=== PATIENT | male | born 1945 | race Caucasian/White ===

== ENCOUNTER 2021-03-27 09:15 | Day surgery (SDC) | payer OTHER ==
--- NOTE | 2021-03-23 17:32 | RAD REPORT ---
EXAM DESCRIPTION: RAD - Chest Pa And Lat (2 Views) - 03/23/2021 5:21 pm CLINICAL HISTORY: PRE-CATH PROCEDURE COMPARISON: No comparisons FINDINGS: Lines: None. Lungs: No evidence of edema or pneumonia. Pleural: No significant pleural effusions or pneumothorax. Cardiac: Cardiomegaly. Bones: No acute fractures. Sternotomy. Other: IMPRESSION: No acute cardiopulmonary disease.
[2021-03-23 17:39] LABS: Absolute Lymphocytes (CBC) 0.8 K/uL (0.7-4.9); Hematocrit 40.5 % (39.6-49.0); Lymphocytes % 16.8 % (15.3-44.8); MPV 7.9 fL (7.6-11.3); RBC Red Blood Cell Count 5.04 M/uL (4.33-5.43)
[2021-03-23 17:44] LABS: Protime INR 1.29
[2021-03-23 17:58] LABS: Potassium 3.8 mmol/L (3.5-5.1)
[2021-03-27] MEDS ORDERED: NA CHLORIDE 0.9% 500 ML ONE (09:25)
[2021-03-27] MEDS ORDERED: MIDAZOLAM HCL 2 MG/2 ML INJ ONE ×2 (09:53→10:45)
[2021-03-27] MEDS ORDERED: HEPA 1000U/500MLS 2,000 UNIT/1,000 ML BAG IV ONE (09:53)
[2021-03-27] MEDS ORDERED: FENTANYL CITR 100 MCG/2 ML ONE (09:54)
[2021-03-27] MEDS ORDERED: ATROPINE SULF 1 MG/10 ML SYR IV ONE (09:54)
[2021-03-27] MEDS ORDERED: NA CHLORIDE 0.9% 50 ML ONE (09:55)
[2021-03-27] MEDS ORDERED: HEPA 1000U/500MLS 1,000 UNIT/500 ML BAG IV ONE (11:14)
[2021-03-27] MEDS ORDERED: LIDOCAINE 1% 20 ML MDV ONE (12:09)
--- NOTE | 2021-03-27 12:39 | OP ---
Date of Procedure: 03/27/2021 Surgeon: Marc Jones MD Indication For The Procedure: Unstable angina. History of CAD. History Of Present Illness: Mr. Rojas is 75, had bypass surgery in 2001, came into the office with unstable angina, scheduled for heart catheterization today as an outpatient. Today's date is . Procedure In Detail: He was brought to the [facility] [employer] [facility], prepped and draped in the routine sterile fashi on. A 6-Spanish sheath introduced in the right common femoral artery successfully using Seldinger asim hnique and 10 cc of xylocaine. Angiography using the JL4 revealed the patent left main. He had a 99 % occlusion of the circumflex and 90% stenosis of the OM-1, 80% proximal LAD before the first diagona l. A JR4 catheter was introduced. The HART was then retracted. The HART was patent to the distal L AD. A vein graft to the OM was found. There was a graft to the circ. There were no vein grafts fou nd to the RCA. The RCA was completely occluded. I actually attempted stent. I attempted to wire th e OM and I did wire it, but the wire would not go into the main body, it kept on to small branches. I attempted to put a balloons through the lesion and that was unsuccessful. I decided to abort the p rocedure. I think he would be much better to be done in [facility]. No complications. Blood Loss: 5 cc. Postoperative Diagnosis: Coronary artery disease, severe. I will review the film with my partner, Dr. Garvey and see if we can have a possible intervention don e in [facility] on him at least of the OM and possibly the LAD. Meanwhile, because of the thrombus in t he OM graft, I am going to put him on Brilinta. He is already on Eliquis for atrial fibrillation or probably plan to do an intervention in the next 2 to 4 weeks. He will remain in the hospital for 2 h ours after bedrest. Continue his home medication except for the Brilinta and I will see him in the office soon. ARTIE/LEXI Voice ID: [id number] Report ID: [id number]
[2021-03-27 13:41] VITALS: TEMP 97.4
[2021-03-27 15:09] VITALS: O2SAT 99
[2021-03-27 15:39] VITALS: BP 136/84
== END 2021-03-27 15:39 | disposition home or self-care (01) ==
LOC: CCL 09:15
DX: I25.110 Atherosclerotic heart disease of native coronary artery with unstable angina pectoris (principal); I25.82 Chronic total occlusion of coronary artery; I11.0 Hypertensive heart disease with heart failure; I50.22 Chronic systolic (congestive) heart failure; I34.0 Nonrheumatic mitral (valve) insufficiency; I48.21 Permanent atrial fibrillation; E78.2 Mixed hyperlipidemia; Z79.01 Long term (current) use of anticoagulants; Z95.1 Presence of aortocoronary bypass graft; Z20.822 Contact with and (suspected) exposure to COVID-19; Z82.49 Family history of ischemic heart disease and other diseases of the circulatory system
CPT/HCPCS: 85025; 80048; 36415; 85610; 85347 ×3; 85730; 71046; 93455; U0003; C1893; J2250; J3010; J0583; J7040; J1644 ×2

== ENCOUNTER 2021-08-24 12:03 | Observation (INO) | payer OTHER ==
--- OUTSIDE RECORDS SUMMARY | 2021-08-24 12:07 | XMS REPORT | Continuity of Care Document ---
:1945 Author Organization [facility] t Address [address] [place] [address] Care Team Providers Name Role Phone PCP, DOES NOT HAVE A Primary Care Physician Unavailable Guru Attending Clinician Unavailable RILEY Attending Clinician Unavailable CRIS Attending Clinician Unavailable MAGDALENE Attending Clinician Unavailable Physician, Primary or Family Admitting Clinician Unavailcelso KATZ Admitting Clinician Unavailable Guru Admitting Clinician Unavailable CRIS Admitting Clinician Unavailable Payers Payer Name Policy Type Policy Number Effective Date Expiration Date S willy MEDICARE PART A [id number] 2011 AND B 00:00:00 MEDICARE PART A [id number] 2011 \T\ B 00:00:00 Problems This patient has no known problems. Allergies, Adverse Reactions, Alerts Allergy Allergy Status Severity Reaction(s) Onset Inactive Treating Comm ents Source Name Type Date Date Clinician No Known DA Active U [facility]-17 Clear s 00:00: Melendez 00 [facility] No Known DA Active U 0 [facility] Allergie 1-10 Clear s 00:00: Melendez 00 [facility] NO KNOWN Drug Active Univers ALLERGIE Class ity of S [facility] Medications This patient has no known medications. Procedures Procedure Date / Time Performed Performing Clinician Purvi mcclure [id number] 2021-05-23 00:00:00 RASSA AMIRA Clear [facility] Encounters Start End Encounter Admission Attending Care Care Encounter Source Date/Time Date/Time Type Type Clinicians Facility Department ID 2021-06-18 Inpatient EL Raslan, [facility] [id number] [facility] 09:30:00 Kevin [id number] [facility] 2021-05-16 Inpatient EL Raslan, [facility] [id number] [facility] 13:00:00 Kevin [id number] [facility] 2021-05-09 Inpatient EL Raslan, [facility] OUT[facility] [id number] [facility] 13:00:00 Kevin [id number] [facility] 2021-04-30 Inpatient EL Raslan, [facility] OUTD [id number] [facility] 11:30:00 Kevin [id number] [facility] 2021-04-25 Inpatient EL Raslan, [facility] [id number] [facility] 10:00:00 Kevin 61 [facility] 2021-04-23 Inpatient EL Raslan, [facility] OUTD [id number] [facility] 10:00:00 Kevin [id number] [facility] 2020-12-22 Outpatient FIDEL LIN MDA [id number] 09:52:44 MIYA garces 2021-06-20 2021-06-20 Outpatient EL Raslan, [facility] OUTD [id number] [facility] 05:23:00 05:23:00 Kevin [id number] [facility] 2021-06-20 2021-06-20 Outpatient EL Raslan, [facility] [id number] [facility] 05:23:00 05:23:00 Kevin 63 [facility] 2021-05-23 2021-05-23 Inpatient EL Raslan, [facility] INTE.02 [id number] [facility] 11:45:00 17:35:00 Kevin 00 [facility] 2021-05-23 2021-05-23 Inpatient EL Raslan, [facility] INTE.02 [id number] [facility] 11:45:00 17:35:00 Kevin [id number] [facility] 2021-05-07 2021-05-07 Outpatient EM Raslan, [facility] 3DAY [id number] [facility] 09:00:00 23:00:00 Kevin [id number] [facility] 2021-05-02 2021-05-02 Outpatient EL Raslan, [facility] [id number] [facility] 05:34:00 05:34:00 Kevin 88 [facility] 2021-05-02 2021-05-02 Outpatient ISAI Pickens OUTD [id number] [facility] 05:34:00 05:34:00 Kevin [id number] [facility] 2021-04-25 2021-04-25 Outpatient ISAI Pickens OUTD [id number] [facility] 05:03:00 05:03:00 Kevin [id number] [facility] 2019-07-13 2019-07-13 Outpatient R CRIS, [facility] [id number] Univers 12:30:46 23:59:00 HOWARD [facility] 2019-07-13 2019-07-13 Outpatient [facility] [id number] Univers 11:40:00 11:40:00 [id number] [facility] 2019-07-12 2019-07-12 Outpatient R [facility] [id number] Univers 20:00:00 20:00:00 [id number] [facility] 2019-07-12 2019-07-12 Outpatient R MAGDALENE, [facility] [id number] Univers 20:00:00 20:00:00 CHASTITY [facility] Results Test Description Test Time Test Comments Results Result Comments Source BASIC METABOLIC PANEL 2021-06-18 10:25:00 Test Item Value Reference Range Interpretation Comme nts SODIUM (test code = NA) 140 mEq/L 134-147 N POTASSIUM (test code = K) 3.8 mEq/L 3.4-5.0 N CHLORIDE (test code = CL) 103 mEq/L 100-108 N CARBON DIOXIDE (test code = CO2) 29 mEq/l 21-33 N ANION GAP (test code = GAP) 12 0-20 N GLUCOSE (test code = GLU) 152 mg/dL 70-110 H BLOOD UREA NITROGEN (test code = 10 mg/dL 7-18 N BUN) GLOMERULAR FILTRATION RATE (test 59.0 70-80 L Units of measure = ml/min/1.73 code = GFR) m2 CREATININE (test code = CREAT) 1.2 mg/dL 0.6-1.3 N CALCIUM (test code = CA) 9.3 mg/dL 8.0-10.5 N PROTHROMBIN [id number] 10:24:00 Test Item Value Reference Range Interpretation Comments PROTHROMBIN TIME 15.1 SECONDS 9.3-12.9 H PATIENT (test code = PTP) INTERNATIONAL NORMAL 1.4 0.8-1.2 H TARGET RATIO (test code = INR BY IN DICATION INR) Indication INR1. Prophyl axis of venous thrombos is 2.0 - 3. 0 (orthopedic vinod temo), Prophylaxis of venous thrombos is (other than hig h-risk surgery), Brenda tment of Deep Vein Thrombosis/Pulm onary Embolism, Preve ntion of systemic emb olism - Tissue heart va lves, Acute Myocardia l Infarction (to prevent systemic embo lism), Valvular heart disease, Atri al Fibrillation, Bileaflet mecha nical valve in aortic position.2. Mec hanical prosthetic valv es (high risk), 2.5 - 3.5 Presence of Lupus Anticoagu lant or Antiphospholi pid Antibodies, Pre vention of systemic e mbolism - Acute Myocard ial Infarction (t o prevent recurre nt infarct). CBC W/AUTO [id number] 10:23:00 Test Item Value Reference Range Interpretation Comments WHITE BLOOD CELL (test code = 4.8 x10 3/uL 4.5-11.0 N WBC) RED BLOOD CELL (test code = 5.21 x10 6/uL 4.00-5.60 N RBC) HEMOGLOBIN (test code = HGB) 13.1 g/dL 12.5-16.9 N HEMATOCRIT (test code = HCT) 42.0 % 37.5-50.7 N MEAN CELL VOLUME (test code = 80.6 fL 81.0-99.0 L MCV) MEAN CELL HGB (test code = MCH) 25.1 pg 27.0-33.0 L MEAN CELL HGB CONCETRATION 31.2 g/dL 33.0-37.0 L (test code = MCHC) RED CELL DISTRIBUTION WIDTH CV 16.2 % 11.5-14.5 H (test code = RDW) PLATELET COUNT (test code = 222 x10 3/uL 150-400 N PLT) NEUTROPHIL % (test code = NT%) 69.2 % 56.0-77.0 N LYMPHOCYTE % (test code = LY%) 15.0 % 14.0-32.0 N NEUTROPHIL # (test code = NT#) 3.31 x10 3/uL 2.0-7.6 N LYMPHOCYTE # (test code = LY#) 0.72 x10 3/uL 1.0-3.8 L MANUAL DIFF REQUIRED (test code NO = MDIFF) RED CELL DISTRIBUTION WIDTH SD 47.7 fL 37.0-54.0 N (test code = RDW-SD) MEAN PLATELET VOLUME (test code 9.5 fL 7.0-9.0 H = MPV) IMMATURE GRANULOCYTE % (test 0.2 % 0.0-2.0 N code = IG%) MONOCYTE % (test code = MO%) 9.2 % 4.8-9.0 H EOSINOPHIL % (test code = EO%) 5.8 % 0.3-3.7 H BASOPHIL % (test code = BA%) 0.6 % 0.0-2.0 N NUCLEATED RBC % (test code = 0.0 % 0-0 N NRBC%) IMMATURE GRANULOCYTE # (test 0.01 x10 3/uL 0.00-0.03 N code = IG#) MONOCYTE # (test code = MO#) 0.44 x10 3/uL 0.1-0.8 N EOSINOPHIL # (test code = EO#) 0.28 x10 3/uL 0.0-0.2 H BASOPHIL # (test code = BA#) 0.03 x10 3/uL 0.0-0.2 N NUCLEATED RBC # (test code = 0.00 x10 3/uL 0.0-0.1 N NRBC#) [id number] 10:59:00 Test Item Value Reference Range Interpretation Comments ACT-ISTAT (test code 249 SEC 74-137 H Perform ed by certified = ACTI) 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 Prophyl axis of venous thrombos is 2.0 - 3. 0 (orthopedic vinod temo), Prophylaxis of venous thrombos is (other than hig h-risk surgery), Brenda tment of Deep Vein Thrombosis/Pulm onary Embolism, Preve ntion of systemic emb olism - Tissue heart va lves, Acute Myocardia l Infarction (to prevent systemic embo lism), Valvular heart disease, Atri al Fibrillation, Bileaflet mecha nical valve in aortic position.2. Mec hanical prosthetic valv es (high risk), 2.5 - 3.5 Presence of Lupus Anticoagu lant or Antiphospholi pid Antibodies, Pre vention of systemic e mbolism - Acute Myocard ial Infarction (t o prevent recurre nt infarct). BASIC METABOLIC [id number] 08:52:00 Test Item Value Reference Range Interpretation Comments SODIUM (test code = NA) 140 mEq/L 134-147 N POTASSIUM (test code = 3.9 mEq/L 3.4-5.0 N K) CHLORIDE (test code = 105 mEq/L 100-108 N CL) CARBON DIOXIDE (test 30 mEq/l 21-33 N code = CO2) ANION GAP (test code = 9 0-20 N GAP) GLUCOSE (test code = 109 mg/dL 70-110 N GLU) BLOOD UREA NITROGEN 11 mg/dL 7-18 N (test code = BUN) GLOMERULAR FILTRATION 59.0 70-80 L Units of measure = RATE (test code = GFR) ml/mi n/1.73 m2 CREATININE (test code = 1.2 mg/dL 0.6-1.3 N CREAT) CALCIUM (test code = 9.2 mg/dL 8.0-10.5 N CA) CBC W/AUTO [id number] 08:45:00 Test Item Value Reference Range Interpretation Comments WHITE BLOOD CELL (test code = 6.0 x10 3/uL 4.5-11.0 N WBC) RED BLOOD CELL (test code = 5.03 x10 6/uL 4.00-5.60 N RBC) HEMOGLOBIN (test code = HGB) 12.7 g/dL 12.5-16.9 N HEMATOCRIT (test code = HCT) 40.8 % 37.5-50.7 N MEAN CELL VOLUME (test code = 81.1 fL 81.0-99.0 N MCV) MEAN CELL HGB (test code = MCH) 25.2 pg 27.0-33.0 L MEAN CELL HGB CONCETRATION 31.1 g/dL 33.0-37.0 L (test code = MCHC) RED CELL DISTRIBUTION WIDTH CV 15.9 % 11.5-14.5 H (test code = RDW) RED CELL DISTRIBUTION WIDTH SD 46.5 fL 37.0-54.0 N (test code = RDW-SD) PLATELET COUNT (test code = 216 x10 3/uL 150-400 N PLT) MEAN PLATELET VOLUME (test code 10.1 fL 7.0-9.0 H = MPV) NEUTROPHIL % (test code = NT%) 70.6 % 56.0-77.0 N IMMATURE GRANULOCYTE % (test 0.3 % 0.0-2.0 N code = IG%) LYMPHOCYTE % (test code = LY%) 12.4 % 14.0-32.0 L MONOCYTE % (test code = MO%) 10.9 % 4.8-9.0 H EOSINOPHIL % (test code = EO%) 5.0 % 0.3-3.7 H BASOPHIL % (test code = BA%) 0.8 % 0.0-2.0 N NUCLEATED RBC % (test code = 0.0 % 0-0 N NRBC%) NEUTROPHIL # (test code = NT#) 4.21 x10 3/uL 2.0-7.6 N IMMATURE GRANULOCYTE # (test 0.02 x10 3/uL 0.00-0.03 N code = IG#) LYMPHOCYTE # (test code = LY#) 0.74 x10 3/uL 1.0-3.8 L MONOCYTE # (test code = MO#) 0.65 x10 3/uL 0.1-0.8 N EOSINOPHIL # (test code = EO#) 0.30 x10 3/uL 0.0-0.2 H BASOPHIL # (test code = BA#) 0.05 x10 3/uL 0.0-0.2 N NUCLEATED RBC # (test code = 0.00 x10 3/uL 0.0-0.1 N NRBC#) MANUAL DIFF REQUIRED (test code NO = MDIFF) - XR CHEST 1 [id number] [facility]00[facility] 1945 Sex: M FAX: Kevin Kingsley MD [phone] [facility]: St: ADM FAX: Ashwin Shannon [phone] Name: MIGUELITO LONGORIA [facility] : 1945ge/S: 76/M [address] [place] [address] Unit #: [id number] Loc: [place] [address] 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 Views: 1 view. COMPARISON: DX XR CHEST 2 V 04/23/2021 11:32 AM FINDINGS: No definite watchman device is visible. Lungs: Mild decreased lung volumes. No consolidation. Pleural spaces: Unremarkable. No pleural effusion. No pneumothorax. Heart/Mediastinum: Cardiac silhouette size remains enlarged. Vasculature is unremarkable. Bones/joints: Wire sternal sutures are manifestations of the patient's previous thoracotomy. IMPRESSION: No acute cardiopulmonary findings. at 1418 Reported and signed by: Boston Agustin M.D. CC: Kevin Garvey MD; Ashwin Woods Technologist: Aleida Rush RT(R) Trnscrd Date/Time/By: 05/23/2021 (0661) : By: [email or web address] Orig Print D/T: S: 05/23/2021 (2716) PAGE 1 Signed ReportNovel Coronavirus 2019 [id number] 22:03:00 Test Item Value Reference Range Interpretation Comments Novel Coronavirus Positive Negative A Critical r [facility] E[facility] Claudio WEST code = COVNONPUI) MCKIBBINby [id number] at 2203 05/07/21Nu rse read back result and tech confirmed it's correct? NPositive resul ts are indicative of t he presence [id number] RN A, clinical correlation wit h patient historyand othe r diagnostic info rmation is necessary to determinepatien t infection status. Positiv e results do not rule out bacterial infection or co -infection with other viru ses. Negative result s do not preclude SARS-C oV-2 infection andsh ould not be used as the master e basis for patient managementdecis ions. Negative result s must be combined with otherclinical observations, p atient history, and epidemiological information . Detection of SARS-CoV-2 RNA may be affe cted bysample collec tion methods, storag e conditions, and /or stageof infection. Barbara l RNA mutations, vacc inations, antiviraltherap eutics, antibiotics, chemotherapeuti c orimmunosuppres julia drugs have not been e valuated for effectson d etection. Results are for the identification of SARS-CoV-2 RNA usingreal-time (RT) polymerase po n reaction (PCR) technolog yfor the qualitative det ection of nucleic acids f rom [id number] v irus and diagnosis of SA RS-CoV-2 virusinfection. It is an Emergency Use Authorization ( EUA) testauthorized by the U.S. FDA. PROTHROMBIN [id number] 12:48:00 Test Item Value Reference Range Interpretation Comments PROTHROMBIN TIME 12.4 SECONDS 9.3-12.9 N PATIENT (test code = PTP) INTERNATIONAL NORMAL 1.1 0.8-1.2 N TARGET RATIO (test code = INR BY IN DICATION INR) Indication INR1. Prophyl axis of venous thrombos is 2.0 - 3. 0 (orthopedic vinod temo), Prophylaxis of venous thrombos is (other than hig h-risk surgery), Brenda tment of Deep Vein Thrombosis/Pulm onary Embolism, Preve ntion of systemic emb olism - Tissue heart va lves, Acute Myocardia l Infarction (to prevent systemic embo lism), Valvular heart disease, Atri al Fibrillation, Bileaflet mecha nical valve in aortic position.2. Mec hanical prosthetic valv es (high risk), 2.5 - 3.5 Presence of Lupus Anticoagu lant or Antiphospholi pid Antibodies, Pre vention of systemic e mbolism - Acute Myocard ial Infarction (t o prevent recurre nt infarct). BASIC METABOLIC [id number] 12:46:00 Test Item Value Reference Range Interpretation Comments SODIUM (test code = NA) 141 mEq/L 134-147 N POTASSIUM (test code = 4.2 mEq/L 3.4-5.0 N K) CHLORIDE (test code = 104 mEq/L 100-108 N CL) CARBON DIOXIDE (test 28 mEq/l 21-33 N code = CO2) ANION GAP (test code = 14 0-20 N GAP) GLUCOSE (test code = 130 mg/dL 70-110 H GLU) BLOOD UREA NITROGEN 10 mg/dL 7-18 N (test code = BUN) GLOMERULAR FILTRATION 65.3 70-80 L Units of measure = RATE (test code = GFR) ml/mi n/1.73 m2 CREATININE (test code = 1.1 mg/dL 0.6-1.3 N CREAT) CALCIUM (test code = 9.4 mg/dL 8.0-10.5 N CA) [id number] 12:46:00 Test Item Value Reference Range Interpretation Comments PREALBUMIN (test code = PREALB) 23.3 mg/dL 16.0-40.0 N CBC W/AUTO [id number] 12:27:00 Test Item Value Reference Range Interpretation Comments WHITE BLOOD CELL (test code = 5.0 x10 3/uL 4.5-11.0 N WBC) RED BLOOD CELL (test code = 4.81 x10 6/uL 4.00-5.60 N RBC) HEMOGLOBIN (test code = HGB) 12.2 g/dL 12.5-16.9 L HEMATOCRIT (test code = HCT) 39.4 % 37.5-50.7 N MEAN CELL VOLUME (test code = 81.9 fL 81.0-99.0 N MCV) MEAN CELL HGB (test code = MCH) 25.4 pg 27.0-33.0 L MEAN CELL HGB CONCETRATION 31.0 g/dL 33.0-37.0 L (test code = MCHC) RED CELL DISTRIBUTION WIDTH CV 15.5 % 11.5-14.5 H (test code = RDW) PLATELET COUNT (test code = 255 x10 3/uL 150-400 N PLT) NEUTROPHIL % (test code = NT%) 69.2 % 56.0-77.0 N LYMPHOCYTE % (test code = LY%) 15.1 % 14.0-32.0 N NEUTROPHIL # (test code = NT#) 3.44 x10 3/uL 2.0-7.6 N LYMPHOCYTE # (test code = LY#) 0.75 x10 3/uL 1.0-3.8 L MANUAL DIFF REQUIRED (test code NO = MDIFF) RED CELL DISTRIBUTION WIDTH SD 44.9 fL 37.0-54.0 N (test code = RDW-SD) MEAN PLATELET VOLUME (test code 9.7 fL 7.0-9.0 H = MPV) IMMATURE GRANULOCYTE % (test 0.2 % 0.0-2.0 N code = IG%) MONOCYTE % (test code = MO%) 10.7 % 4.8-9.0 H EOSINOPHIL % (test code = EO%) 4.2 % 0.3-3.7 H BASOPHIL % (test code = BA%) 0.6 % 0.0-2.0 N NUCLEATED RBC % (test code = 0.0 % 0-0 N NRBC%) IMMATURE GRANULOCYTE # (test 0.01 x10 3/uL 0.00-0.03 N code = IG#) MONOCYTE # (test code = MO#) 0.53 x10 3/uL 0.1-0.8 N EOSINOPHIL # (test code = EO#) 0.21 x10 3/uL 0.0-0.2 H BASOPHIL # (test code = BA#) 0.03 x10 3/uL 0.0-0.2 N NUCLEATED RBC # (test code = 0.00 x10 3/uL 0.0-0.1 N NRBC#) BASIC METABOLIC [id number] 12:44:00 Test Item Value Reference Range Interpretation Comments SODIUM (test code = NA) 142 mEq/L 134-147 N POTASSIUM (test code = 3.3 mEq/L 3.4-5.0 L K) CHLORIDE (test code = 106 mEq/L 100-108 N CL) CARBON DIOXIDE (test 29 mEq/l 21-33 N code = CO2) ANION GAP (test code = 11 0-20 N GAP) GLUCOSE (test code = 142 mg/dL 70-110 H GLU) BLOOD UREA NITROGEN 10 mg/dL 7-18 N (test code = BUN) GLOMERULAR FILTRATION 72.8 70-80 N Units of measure = RATE (test code = GFR) ml/mi n/1.73 m2 CREATININE (test code = 1.0 mg/dL 0.6-1.3 N CREAT) CALCIUM (test code = 8.6 mg/dL 8.0-10.5 N CA) CBC W/AUTO [id number] 12:22:00 Test Item Value Reference Range Interpretation Comments WHITE BLOOD CELL (test code = 4.2 x10 3/uL 4.5-11.0 L WBC) RED BLOOD CELL (test code = 4.46 x10 6/uL 4.00-5.60 N RBC) HEMOGLOBIN (test code = HGB) 11.4 g/dL 12.5-16.9 L HEMATOCRIT (test code = HCT) 35.9 % 37.5-50.7 L MEAN CELL VOLUME (test code = 80.5 fL 81.0-99.0 L MCV) MEAN CELL HGB (test code = MCH) 25.6 pg 27.0-33.0 L MEAN CELL HGB CONCETRATION 31.8 g/dL 33.0-37.0 L (test code = MCHC) RED CELL DISTRIBUTION WIDTH CV 14.8 % 11.5-14.5 H (test code = RDW) RED CELL DISTRIBUTION WIDTH SD 42.8 fL 37.0-54.0 N (test code = RDW-SD) PLATELET COUNT (test code = 258 x10 3/uL 150-400 N PLT) MEAN PLATELET VOLUME (test code 9.4 fL 7.0-9.0 H = MPV) NEUTROPHIL % (test code = NT%) 70.5 % 56.0-77.0 N IMMATURE GRANULOCYTE % (test 0.2 % 0.0-2.0 N code = IG%) LYMPHOCYTE % (test code = LY%) 16.9 % 14.0-32.0 N MONOCYTE % (test code = MO%) 9.3 % 4.8-9.0 H EOSINOPHIL % (test code = EO%) 2.6 % 0.3-3.7 N BASOPHIL % (test code = BA%) 0.5 % 0.0-2.0 N NUCLEATED RBC % (test code = 0.0 % 0-0 N NRBC%) NEUTROPHIL # (test code = NT#) 2.95 x10 3/uL 2.0-7.6 N IMMATURE GRANULOCYTE # (test 0.01 x10 3/uL 0.00-0.03 N code = IG#) LYMPHOCYTE # (test code = LY#) 0.71 x10 3/uL 1.0-3.8 L MONOCYTE # (test code = MO#) 0.39 x10 3/uL 0.1-0.8 N EOSINOPHIL # (test code = EO#) 0.11 x10 3/uL 0.0-0.2 N BASOPHIL # (test code = BA#) 0.02 x10 3/uL 0.0-0.2 N NUCLEATED RBC # (test code = 0.00 x10 3/uL 0.0-0.1 N NRBC#) MANUAL DIFF REQUIRED (test code NO = MDIFF) [id number] 09:24:00 Test Item Value Reference Range Interpretation Comments ACT-ISTAT (test code 279 SEC 74-137 H Perform ed by certified = ACTI) 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 Prophyl axis of venous thrombos is 2.0 - 3. 0 (orthopedic vinod temo), Prophylaxis of venous thrombos is (other than hig h-risk surgery), Brenda tment of Deep Vein Thrombosis/Pulm onary Embolism, Preve ntion of systemic emb olism - Tissue heart va lves, Acute Myocardia l Infarction (to prevent systemic embo lism), Valvular heart disease, Atri al Fibrillation, Bileaflet mecha nical valve in aortic position.2. Mec hanical prosthetic valv es (high risk), 2.5 - 3.5 Presence of Lupus Anticoagu lant or Antiphospholi pid Antibodies, Pre vention of systemic e mbolism - Acute Myocard ial Infarction (t o prevent recurre nt infarct). BASIC METABOLIC [id number] 14:54:00 Test Item Value Reference Range Interpretation Comments SODIUM (test code = NA) 141 mEq/L 134-147 N POTASSIUM (test code = 3.6 mEq/L 3.4-5.0 N K) CHLORIDE (test code = 103 mEq/L 100-108 N CL) CARBON DIOXIDE (test 29 mEq/l 21-33 N code = CO2) ANION GAP (test code = 13 0-20 N GAP) GLUCOSE (test code = 90 mg/dL 70-110 N GLU) BLOOD UREA NITROGEN 10 mg/dL 7-18 N (test code = BUN) GLOMERULAR FILTRATION 72.8 70-80 N Units of measure = RATE (test code = GFR) ml/mi n/1.73 m2 CREATININE (test code = 1.0 mg/dL 0.6-1.3 N CREAT) CALCIUM (test code = 9.2 mg/dL 8.0-10.5 N CA) CBC W/AUTO [id number] 14:45:00 Test Item Value Reference Range Interpretation Comments WHITE BLOOD CELL (test code = 4.9 x10 3/uL 4.5-11.0 N WBC) RED BLOOD CELL (test code = 4.87 x10 6/uL 4.00-5.60 N RBC) HEMOGLOBIN (test code = HGB) 12.5 g/dL 12.5-16.9 N HEMATOCRIT (test code = HCT) 39.4 % 37.5-50.7 N MEAN CELL VOLUME (test code = 80.9 fL 81.0-99.0 L MCV) MEAN CELL HGB (test code = MCH) 25.7 pg 27.0-33.0 L MEAN CELL HGB CONCETRATION 31.7 g/dL 33.0-37.0 L (test code = MCHC) RED CELL DISTRIBUTION WIDTH CV 14.7 % 11.5-14.5 H (test code = RDW) RED CELL DISTRIBUTION WIDTH SD 42.9 fL 37.0-54.0 N (test code = RDW-SD) PLATELET COUNT (test code = 286 x10 3/uL 150-400 N PLT) MEAN PLATELET VOLUME (test code 9.7 fL 7.0-9.0 H = MPV) NEUTROPHIL % (test code = NT%) 67.4 % 56.0-77.0 N IMMATURE GRANULOCYTE % (test 0.4 % 0.0-2.0 N code = IG%) LYMPHOCYTE % (test code = LY%) 13.2 % 14.0-32.0 L MONOCYTE % (test code = MO%) 16.2 % 4.8-9.0 H EOSINOPHIL % (test code = EO%) 2.4 % 0.3-3.7 N BASOPHIL % (test code = BA%) 0.4 % 0.0-2.0 N NUCLEATED RBC % (test code = 0.0 % 0-0 N NRBC%) NEUTROPHIL # (test code = NT#) 3.32 x10 3/uL 2.0-7.6 N IMMATURE GRANULOCYTE # (test 0.02 x10 3/uL 0.00-0.03 N code = IG#) LYMPHOCYTE # (test code = LY#) 0.65 x10 3/uL 1.0-3.8 L MONOCYTE # (test code = MO#) 0.80 x10 3/uL 0.1-0.8 N EOSINOPHIL # (test code = EO#) 0.12 x10 3/uL 0.0-0.2 N BASOPHIL # (test code = BA#) 0.02 x10 3/uL 0.0-0.2 N NUCLEATED RBC # (test code = 0.00 x10 3/uL 0.0-0.1 N NRBC#) MANUAL DIFF REQUIRED (test code NO = MDIFF) BASIC METABOLIC [id number] 11:47:00 Test Item Value Reference Range Interpretation Comments SODIUM (test code = NA) 141 mEq/L 134-147 N POTASSIUM (test code = 4.2 mEq/L 3.4-5.0 N K) CHLORIDE (test code = 104 mEq/L 100-108 N CL) CARBON DIOXIDE (test 30 mEq/l 21-33 N code = CO2) ANION GAP (test code = 12 0-20 N GAP) GLUCOSE (test code = 113 mg/dL 70-110 H GLU) BLOOD UREA NITROGEN 9 mg/dL 7-18 N (test code = BUN) GLOMERULAR FILTRATION 65.3 70-80 L Units of measure = RATE (test code = GFR) ml/mi n/1.73 m2 CREATININE (test code = 1.1 mg/dL 0.6-1.3 N CREAT) CALCIUM (test code = 9.4 mg/dL 8.0-10.5 N CA) PROTHROMBIN [id number] 11:35:00 Test Item Value Reference Range Interpretation Comments PROTHROMBIN TIME 17.0 SECONDS 9.3-12.9 H PATIENT (test code = PTP) INTERNATIONAL NORMAL 1.5 0.8-1.2 H TARGET RATIO (test code = INR BY IN DICATION INR) Indication INR1. Prophyl axis of venous thrombos is 2.0 - 3. 0 (orthopedic vinod temo), Prophylaxis of venous thrombos is (other than hig h-risk surgery), Brenda tment of Deep Vein Thrombosis/Pulm onary Embolism, Preve ntion of systemic emb olism - Tissue heart va lves, Acute Myocardia l Infarction (to prevent systemic embo lism), Valvular heart disease, Atri al Fibrillation, Bileaflet mecha nical valve in aortic position.2. Mec hanical prosthetic valv es (high risk), 2.5 - 3.5 Presence of Lupus Anticoagu lant or Antiphospholi pid Antibodies, Pre vention of systemic e mbolism - Acute Myocard ial Infarction (t o prevent recurre nt infarct). CBC W/AUTO [id number] 11:28:00 Test Item Value Reference Range Interpretation Comments WHITE BLOOD CELL (test code = 4.2 x10 3/uL 4.5-11.0 L WBC) RED BLOOD CELL (test code = 5.20 x10 6/uL 4.00-5.60 N RBC) HEMOGLOBIN (test code = HGB) 13.2 g/dL 12.5-16.9 N HEMATOCRIT (test code = HCT) 41.9 % 37.5-50.7 N MEAN CELL VOLUME (test code = 80.6 fL 81.0-99.0 L MCV) MEAN CELL HGB (test code = MCH) 25.4 pg 27.0-33.0 L MEAN CELL HGB CONCETRATION 31.5 g/dL 33.0-37.0 L (test code = MCHC) RED CELL DISTRIBUTION WIDTH CV 14.7 % 11.5-14.5 H (test code = RDW) PLATELET COUNT (test code = 173 x10 3/uL 150-400 N PLT) NEUTROPHIL % (test code = NT%) 78.4 % 56.0-77.0 H LYMPHOCYTE % (test code = LY%) 9.4 % 14.0-32.0 L NEUTROPHIL # (test code = NT#) 3.25 x10 3/uL 2.0-7.6 N LYMPHOCYTE # (test code = LY#) 0.39 x10 3/uL 1.0-3.8 L MANUAL DIFF REQUIRED (test code NO = MDIFF) RED CELL DISTRIBUTION WIDTH SD 43.5 fL 37.0-54.0 N (test code = RDW-SD) MEAN PLATELET VOLUME (test code 9.7 fL 7.0-9.0 H = MPV) IMMATURE GRANULOCYTE % (test 0.2 % 0.0-2.0 N code = IG%) MONOCYTE % (test code = MO%) 10.6 % 4.8-9.0 H EOSINOPHIL % (test code = EO%) 1.2 % 0.3-3.7 N BASOPHIL % (test code = BA%) 0.2 % 0.0-2.0 N NUCLEATED RBC % (test code = 0.0 % 0-0 N NRBC%) IMMATURE GRANULOCYTE # (test 0.01 x10 3/uL 0.00-0.03 N code = IG#) MONOCYTE # (test code = MO#) 0.44 x10 3/uL 0.1-0.8 N EOSINOPHIL # (test code = EO#) 0.05 x10 3/uL 0.0-0.2 N BASOPHIL # (test code = BA#) 0.01 x10 3/uL 0.0-0.2 N NUCLEATED RBC # (test code = 0.00 x10 3/uL 0.0-0.1 N NRBC#) - XR CHEST 2 [id number] [facility] 1945 Sex: M FAX: Kevin Kingsley MD [phone] [facility]: St: PRE Name: SWATIMIGUELITO [facility] : 1945 Age/S: 76/M [address] [place] [address] Unit #: [id number] Loc: [place] [address] Phys: Fidelia Garvey Acct: [id number] Dis Date: Status: PRE [facility] [place]ONE #: [phone] Exam Date: 04/23/2021 1209 FAX #: [phone] Reason: PREOP EXAMS: CPT CODE: [id number] XR CHEST 2 V [id number] PROCEDURE INFORMATION: Exam: XR Chest Exam date and time: 04/23/2021 11:32 AM Age: 76 years old Clinical indication: Pre-operative exam; Respiratory screening exam; Additional info: Preop TECHNIQUE: Imaging protocol: XR of the chest. Views: 2 views. PA and Lateral COMPARISON: No relevant prior studies available. FINDINGS: Lungs: No consolidation. Pleural spaces: Nopleural effusion. Heart/Mediastinum: The heart is borderline enlarged. Bones/joints:No gross acute findings. Prior sternotomy changes. IMPRESSION: No acute cardiopulmonary findings at 9034 Reported and signed by: Estuardo Clifford D.O. CC: Kevin Garvey MD Technologist: RT Irma(R) Trnscrd Date/Time/By: 04/23/2021 (7947) : By: [email or web address] Orig Print D/T: S: 04/23/2021 (1963) PAGE 1 SignedReport
[2021-08-24 13:39] LABS: Hematocrit 40.1 % (39.6-49.0); Lymphocytes % 15.2 % (15.3-44.8); MPV 7.5 fL (7.6-11.3); RBC Red Blood Cell Count 5.11 M/uL (4.33-5.43)
[2021-08-24 13:57] LABS: Albumin 4.1 g/dL (3.4-5.0); Bilirubin Direct 0.2 mg/dL (0-0.2); Bilirubin Total 0.5 mg/dL (0.2-1.0); Magnesium 2.1 mg/dL (1.8-2.4); Potassium 3.3 mmol/L (3.5-5.1); Protein, Total 7.3 g/dL (6.4-8.2)
[2021-08-24 14:10] LABS: Troponin High Sensitivity 93.1 pg/mL (<58.9)
--- NOTE | 2021-08-24 14:32 | RAD REPORT ---
EXAM DESCRIPTION: RAD - Chest Single View - 08/24/2021 2:19 pm CLINICAL HISTORY: PALPITATIONS Chest pain. COMPARISON: Chest Pa And Lat (2 Views) dated 03/23/2021 FINDINGS: Portable technique limits examination quality. Mild interstitial pulmonary edema. The heart is normal in size. No displaced fractures.Sternotomy wir es. IMPRESSION: Mild CHF.
--- NOTE | 2021-08-24 15:21 | ER ---
Nurse's Notes [facility] Name: Lawrence Rojas Age: 76 yrs Sex: Male : 1945 Arrival Date: 08/24/2021 Time: 12:04 Bed 16 Private MD: Deon Da Silva; Kevin Garvey Diagnosis: Palpitations;Elevated troponin Presentation: 08/24 12:56 Chief complaint: Patient states: "I can feel the flutters in my chest but Marisela been vg1 feeling them since Friday". Pt denies SOB and denies chest pain. Coronavirus screen: Vaccine status: Patient reports receiving the 2nd dose of the covid vaccine. Client denies travel out of the [place] in the last 14 days. Ebola Screen: Patient denies exposure to infectious person. Patient denies travel to an Ebola-affected area in the 21 days before illness onset. Initial Sepsis Screen: Does the patient meet any 2 criteria? No. Patient's initial sepsis screen is negative. Does the patient have a suspected source of infection? No. Patient's initial sepsis screen is negative. Risk Assessment: Do you want to hurt yourself or someone else? Patient reports no desire to harm self or others. Onset of symptoms was August 18, 2021. 12:56 Method Of Arrival: Ambulatory vg1 12:56 Acuity: REID 3 vg1 Triage Assessment: 13:02 General: Appears in no apparent distress. comfortable, Behavior is calm, cooperative. vg1 Pain: Denies pain. Neuro: Ybarra Agitation-Sedation Scale (RASS): 0 - Alert and Calm Level of Consciousness is awake, alert, obeys commands, Oriented to person, place, time, situation. Cardiovascular: Patient's skin is warm and dry. Historical: - Allergies: 12:58 No Known Allergies; vg1 - Home Meds: 12:58 atorvastatin oral [Active]; Entresto oral [Active]; Amiodarone Oral [Active]; Brilinta vg1 oral [Active]; Omeprazole Oral [Active]; Furosemide Oral [Active]; Aspirin Oral [Active]; - PMHx: 12:58 Myocardial infarction; Hypercholesterolemia; Atrial fibrillation; vg1 13:04 Congestive heart failure; vg1 - PSHx: 13:02 Stented artery; Coronary artery bypass graft; vg1 - Immunization history:: Client reports receiving the 2nd dose of the Covid vaccine. - Social history:: Smoking status: Patient denies any tobacco usage or history of. Screenin:22 Abuse screen: Denies threats or abuse. Nutritional screening: No deficits noted. jb4 Tuberculosis screening: No symptoms or risk factors identified. Fall Risk None identified. Assessment: 13:06 Reassessment: Pt stated "whoever my provider is today, Dr Garvey's office would like vg1 for them to call the office". 15:22 General: Appears in no apparent distress. comfortable, Behavior is calm, cooperative, jb4 appropriate for age. Pain: Denies pain. Neuro: Level of Consciousness is awake, alert, obeys commands, Oriented to person, place, time, situation. Cardiovascular: Patient's skin is warm and dry. Respiratory: Airway is patent Respiratory effort is even, unlabored, Respiratory pattern is regular, symmetrical. GI: No signs and/or symptoms were reported involving the gastrointestinal system. : No signs and/or symptoms were reported regarding the genitourinary system. EENT: No signs and/or symptoms were reported regarding the EENT system. Derm: Skin is intact, Skin is pink, warm \\T\\ dry. Musculoskeletal: Circulation, motion, and sensation intact. Range of motion: intact in all extremities. 16:30 Reassessment: Patient appears in no apparent distress at this time. Patient and/or jb4 family updated on plan of care and expected duration. Pain level reassessed. Patient is alert, oriented x 3, equal unlabored respirations, skin warm/dry/pink. 17:30 Reassessment: Patient appears in no apparent distress at this time. Patient and/or jb4 family updated on plan of care and expected duration. Pain level reassessed. Patient is alert, oriented x 3, equal unlabored respirations, skin warm/dry/pink. 18:41 Reassessment: Patient appears in no apparent distress at this time. Patient and/or jb4 family updated on plan of care and expected duration. Pain level reassessed. Patient is alert, oriented x 3, equal unlabored respirations, skin warm/dry/pink. Attempted to call report. 19:22 Reassessment: attempted to call report. jb4 20:49 Reassessment: Patient appears in no apparent distress at this time. Patient and/or jb4 family updated on plan of care and expected duration. Pain level reassessed. Patient is alert, oriented x 3, equal unlabored respirations, skin warm/dry/pink. Vital Signs: 13:04 BP 113 / 72; Pulse 94; Resp 16; Temp 98.1; Pulse Ox 100% ; Weight 110.22 kg; Height 6 vg1 ft. 0 in. (182.88 cm); Pain 0/10; 15:15 BP 100 / 48; Pulse 80; Resp 14; Pulse Ox 98% on R/A; jb4 16:45 BP 125 / 61; Pulse 91; Resp 22; Pulse Ox 98% on R/A; jb4 18:30 BP 128 / 69; Pulse 90; Resp 17; Pulse Ox 97% on R/A; jb4 19:30 BP 114 / 73; Pulse 71; Resp 11; Pulse Ox 99% on R/A; jb4 20:30 BP 122 / 75; Pulse 77; Resp 18; Pulse Ox 97% on R/A; jb4 13:04 Body Mass Index 32.96 (110.22 kg, 182.88 cm) vg1 ED Course: 12:04 Patient arrived in ED. as 12:04 Kevin Garvey MD is Private Physician. as 12:04 Deon Da Silva is Private Physician. as 12:18 [facility]. pm1 12:18 Gilles Salazar MD is Attending Physician. pm1 12:58 Triage completed. vg1 13:04 Arm band placed on. EKG completed in triage. Results shown to MD. vg1 13:20 Inserted saline lock: 20 gauge in right antecubital area, using aseptic technique. jw7 Blood collected. 13:20 Initial lab(s) drawn, by wy, sent to lab. jw7 14:21 XRAY Chest (1 view) In Process Unspecified. EDMS 14:50 EKG done, by ED staff, reviewed by Gilles Salazar MD. 5 14:51 Patient has correct armband on for positive identification. Placed in gown. Bed in low mh5 position. Call light in reach. Side rails up X 1. Adult w/ patient. Warm blanket given. monitor technician on. Pulse ox on. NIBP on. 14:57 Ricardo Olsen, RN is Primary Nurse. jb4 15:18 Ash Bobby MD is Hospitalizing Provider. pm1 20:50 No provider procedures requiring assistance completed. Patient admitted, IV remains in jb4 place. Administered Medications: No medications were administered Outcome: 15:20 Decision to Hospitalize by Provider. pm1 20:50 Admitted to Med/surg accompanied by nurse, family with patient, via wheelchair, room jb4 210, with chart, Report called to DOMO FLOREZ 20:50 Condition: stable 20:50 Discharge instructions given to patient, family, Instructed on the need for admit, Demonstrated understanding of instructions. 20:51 Patient left the ED. jb4 Signatures: Dispatcher [employer] EDBibiana Bernabe Patrick, LOU CARBIDE POWDER PROCESSOR pm1 Ricardo Olsen, RN RN jb4 Valerie Smith Eve Ruiz RN RN vg1 Lorena Bangura jw7 Corrections: (The following items were deleted from the chart) 13:02 12:58 PMHx: Hypertensive disorder; vg1 vg1 13:02 12:58 PSHx: Stented artery; 1 1 13:04 12:58 PMHx: Atrial fibrillation; vg1 vg1 15:37 15:22 No provider procedures requiring assistance completed. jb4 jb4 15:37 15:22 IV discontinued, intact, bleeding controlled, No redness/swelling at site. jb4 Pressure dressing applied, jb4
--- NOTE | 2021-08-24 15:21 | EDPHYS ---
Physician Documentation [facility] Name: Lawrence Rojas Age: 76 yrs Sex: Male : 1945 Arrival Date: 08/24/2021 Time: 12:04 Bed 16 Private MD: Julia Da Silva Saleem ED Physician Gilles Salazar HPI: 08/24 13:01 This 76 yrs old Male presents to ER via Ambulatory with complaints of palpitations. pm1 13:01 The patient presents with a history of irregular heart beat. Context: The symptoms pm1 occur at rest. Onset: The symptoms/episode began/occurred 1 week(s) ago. Duration: The patient or guardian reports multiple episodes, 1 week ago, yesterday and today. Modifying factors: The symptoms are aggravated by nothing. The symptoms are alleviated by nothing. Associated signs and symptoms: Pertinent positives: dizziness, Pertinent negatives: chest pain, nausea, SOB, near-syncope, vomiting. Severity of symptoms: in the emergency department the symptoms have resolved Pain is currently a 0 / 10. The patient has not recently seen a physician. Historical: - Allergies: 12:58 No Known Allergies; vg1 - Home Meds: 12:58 atorvastatin oral [Active]; Entresto oral [Active]; Amiodarone Oral [Active]; Brilinta vg1 oral [Active]; Omeprazole Oral [Active]; Furosemide Oral [Active]; Aspirin Oral [Active]; - PMHx: 12:58 Myocardial infarction; Hypercholesterolemia; Atrial fibrillation; vg1 13:04 Congestive heart failure; vg1 - PSHx: 13:02 Stented artery; Coronary artery bypass graft; vg1 - Immunization history:: Client reports receiving the 2nd dose of the Covid vaccine. - Social history:: Smoking status: Patient denies any tobacco usage or history of. ROS: 13:01 Constitutional: Negative for fever, chills, and weight loss. pm1 13:01 Respiratory: Negative for shortness of breath, cough, wheezing, and pleuritic chest pain, Abdomen/GI: Negative for abdominal pain, nausea, vomiting, diarrhea, and constipation, Back: Negative for injury and pain, MS/Extremity: Negative for injury and deformity, Skin: Negative for injury, rash, and discoloration. 13:01 Cardiovascular: Positive for palpitations, Negative for chest pain. 13:01 Neuro: Positive for dizziness, Negative for headache, numbness, tingling. 13:01 All other systems are negative. Exam: 13:01 Constitutional: This is a well developed, well nourished patient who is awake, alert, pm1 and in no acute distress. Head/Face: Normocephalic, atraumatic. 13:01 Back: No spinal tenderness. No costovertebral tenderness. Full range of motion. Skin: Warm, dry with normal turgor. Normal color with no rashes, no lesions, and no evidence of cellulitis. MS/ Extremity: Pulses equal, no cyanosis. Neurovascular intact. Full, normal range of motion. 13:01 Eyes: Exam is negative for acute changes, Periorbital structures: no acute changes, Pupils: no acute changes, Extraocular movements: no acute changes. 13:01 Cardiovascular: Exam negative for acute changes, Rate: normal, Rhythm: regular, Pulses: no pulse deficits are appreciated. 13:01 Respiratory: Exam negative for acute changes, the patient does not display signs of respiratory distress, Respirations: normal, Breath sounds: are clear throughout. 13:01 Abdomen/GI: Exam negative for acute changes, Inspection: abdomen appears normal, Palpation: abdomen is soft and non-tender, in all quadrants. 13:01 Neuro: Exam negative for acute changes, Orientation: is normal, Mentation: is normal, Motor: is normal, no acute changes. Vital Signs: 13:04 BP 113 / 72; Pulse 94; Resp 16; Temp 98.1; Pulse Ox 100% ; Weight 110.22 kg; Height 6 vg1 ft. 0 in. (182.88 cm); Pain 0/10; 15:15 BP 100 / 48; Pulse 80; Resp 14; Pulse Ox 98% on R/A; jb4 16:45 BP 125 / 61; Pulse 91; Resp 22; Pulse Ox 98% on R/A; jb4 18:30 BP 128 / 69; Pulse 90; Resp 17; Pulse Ox 97% on R/A; jb4 19:30 BP 114 / 73; Pulse 71; Resp 11; Pulse Ox 99% on R/A; jb4 20:30 BP 122 / 75; Pulse 77; Resp 18; Pulse Ox 97% on R/A; jb4 13:04 Body Mass Index 32.96 (110.22 kg, 182.88 cm) vg1 MDM: 12:28 Patient medically screened. pm1 15:15 Data reviewed: vital signs. Data interpreted: Pulse oximetry: on room air is 100 %. pm1 Interpretation: normal. Counseling: I had a detailed discussion with the patient and/or guardian regarding: the historical points, exam findings, and any diagnostic results supporting the discharge/admit diagnosis, lab results, radiology results, the need for further work-up and treatment in the hospital. 08/24 13:00 Order name: Basic Metabolic Panel; Complete Time: 14:15 pm08/24 13:00 Order name: CBC with Diff; Complete Time: 14:15 pm08/24 13:00 Order name: LFT's; Complete Time: 14:15 pm08/24 13:00 Order name: Magnesium; Complete Time: 14:15 pm08/24 13:00 Order name: NT PRO-BNP; Complete Time: 14:15 pm08/24 13:00 Order name: PT-INR; Complete Time: 14:15 pm08/24 13:00 Order name: Troponin HS; Complete Time: 14:15 pm08/24 15:43 Order name: SARS-COV-2 RT PCR (Document "Date of Onset" if Symptomatic); Complete Time: eb 17:54 08/24 16:24 Order name: T4 Free; Complete Time: 19:59 EDIL 08/24 16:24 Order name: Thyroid Stimulating Hormone; Complete Time: 19:59 [facility] 08/24 16:24 Order name: Basic Metabolic Panel [facility] 08/24 16:24 Order name: Basic Metabolic Panel [facility] 08/24 16:24 Order name: CKMB Creatine Kinase MB [facility] 08/24 16:24 Order name: CKMB Creatine Kinase MB; Complete Time: 19:52 EDIL 08/24 13:00 Order name: XRAY Chest (1 view); Complete Time: 14:39 pm08/24 16:24 Order name: CKMB Creatine Kinase MB [facility] 08/24 16:24 Order name: CKMB Creatine Kinase MB [facility] 08/24 16:24 Order name: Creatine Phosphokinase [facility] 08/24 16:24 Order name: Creatine Phosphokinase; Complete Time: 19:52 EDIL 08/24 16:24 Order name: Creatine Phosphokinase [facility] 08/24 16:24 Order name: Creatine Phosphokinase EDMS 08/24 16:24 Order name: Lipid Profile EDMS 08/24 16:24 Order name: Lipid Profile EDMS 08/24 16:24 Order name: Magnesium EDMS 08/24 16:24 Order name: Magnesium EDMS 08/24 16:24 Order name: Phosphorus EDMS 08/24 16:24 Order name: Phosphorus EDMS 08/24 16:26 Order name: Troponin High Sensitivity EDMS 08/24 16:26 Order name: Troponin High Sensitivity; Complete Time: 19:52 EDMS 08/24 16:26 Order name: Troponin High Sensitivity EDMS 08/24 13:00 Order name: EKG; Complete Time: 13:01 pm1 08/24 13:00 Order name: Cardiac monitoring; Complete Time: 15:22 pm1 08/24 13:00 Order name: EKG - Nurse/Tech; Complete Time: 15:22 pm1 08/24 13:00 Order name: IV Saline Lock; Complete Time: 15:10 pm1 08/24 13:00 Order name: Labs collected and sent; Complete Time: 15:10 pm1 08/24 13:00 Order name: O2 Per Protocol; Complete Time: 13:05 pm1 08/24 13:00 Order name: O2 Sat Monitoring; Complete Time: 13:05 pm1 08/24 16:24 Order name: Heart Healthy EDMS Administered Medications: No medications were administered Disposition Summary: 08/24/21 15:20 Hospitalization Ordered Hospitalization Status: Inpatient Admission pm1 Provider: sAh Bobby pm1 Location: Telemetry/MedSurg (Inpatient) pm1 Condition: Stable pm1 Problem: new pm1 Symptoms: have improved pm1 Bed/Room Type: Standard pm1 Room Assignment: 210(08/24/21 18:25) eb Diagnosis - Palpitations pm1 - Elevated troponin pm1 Forms: - Medication Reconciliation Form pm1 - SBAR form pm1 Signatures: Dispatcher [employer] EDBry Reddy NP MANAGER SOLUTION pm1 Sujata Hoover Victoria, RN RN vg1 Corrections: (The following items were deleted from the chart) 13:02 12:58 PMHx: Hypertensive disorder; vg1 vg1 13:02 12:58 PSHx: Stented artery; vg1 vg1 13:04 12:58 PMHx: Atrial fibrillation; vg1 vg1 18:25 15:20 pm1 eb
--- NOTE | 2021-08-24 16:36 | P.HP ---
Certification for Inpatient Patient admitted to: Observation With expected LOS: <2 Midnights Practitioner: I am a practitioner with admitting privileges, knowledge of patient current condition, hospital course, and medical plan of care. Services: Services provided to patient in accordance with Admission requirements found in Title 42 Section 412.3 of the Code of Federal Regulations Patient History Date of Service: 08/24/21 Reason for admission: Dizziness, palpitation. History of Present Illness: 76-year-old male patient with medical history significant for coronary artery di sease status post bypass graft surgery, history of atrial fibrillation status post watchman procedure and cardioversion, hyperlipidemia, hypertension, history of CHF on oral Lasix who was evaluated in the emergency room for episode of feeling tired and slightly dizzy. He reported episode of palpitation and started earlier today and as per he also had episode of low heart rate with heart rate said to have dropped into the 30s before coming to the ER. In the emergency department because of concerns for possible underlying tachyarrhythmia he had lab work that revealed elevated troponin and episode of slight tachycardia. He was asked to be admitted for observation and rule out for ACS. He denied any overt chest pain, fever, chills, rigor, nausea, vomiting. He denied any shortness of breath episode. Allergies No Known Allergies Allergy (Unverified 03/23/21 16:45) Review of Systems General: Weakness Eyes: Unremarkable ENT: Unremarkable Respiratory: Unremarkable Cardiovascular: Palpitations, Light Headedness Gastrointestinal: Unremarkable Genitourinary: Unremarkable Musculoskeletal: Unremarkable Integumentary: Unremarkable Physical Examination - Physical Exam General: Alert, Oriented x3 HEENT: Atraumatic, Normocephalic Neck: Supple Respiratory: Normal air movement Cardiovascular: Normal S1 S2, Irregular heart rate/rhythm Gastrointestinal: Soft and benign Musculoskeletal: Swelling (mildin ankles.) Neurological: Normal speech, Normal strength at 5/5 x4 extr - Studies Laboratory Data (last 24 hrs) 08/24/21 13:18: PT 11.0, INR 1.00 08/24/21 13:18: WBC 6.4, Hgb 13.3 L, Hct 40.1, Plt Count 224 08/24/21 13:18: Sodium 136, Potassium 3.3 L, BUN 16, Creatinine 1.39 H, Glucose 101, Magnesium 2.1, Total Bilirubin 0.5, AST 20, ALT 33, Alkaline Phosphatase 62 Assessment and Plan - Plan 1.Atrial fibrillation: Patient does have a history of atrial fibrillation and is as a watchman procedure done. Is presently on aspirin and Brilinta. We will put him on telemetry and a rate control medication metoprolol started. Will obtain lipid panel in a.m. Will have cardiology evaluate if needed. 2. Coronary artery disease status post bypass graft surgery: Will continue statin therapy and dual antiplatelet therapy pending further review. Cardiology on board. 3. Elevated troponin. This is perhaps secondary to tachycardia episode however there is some strong suspicion for NSTEMI based on cardiac history. We will trend troponin and follow-up. Will continue dual antiplatelet therapy pending further review. If troponin trend continues to be concerning full dose Lovenox/heparin will be started for ACS management Prophylaxis: Lovenox for DVT prophylaxis CODE STATUS: Full code. Disposition: For possible discharge in 24-48hr. Discharge Plan: Home Plan to discharge in: 24 Hours - Advance Directives Does patient have a Living Will: No Does patient have a Durable POA for Healthcare: No - Code Status/Comfort Care Code Status Assessed: Yes Code Status: Full Code
[2021-08-24] MEDS ORDERED: METOPROLOL TAR 25 MG TAB PO SCH (18:00)
[2021-08-24 18:09] VITALS: BMI 32.9
[2021-08-24] MEDS ORDERED: METOPROLOL TAR 25 MG TAB ONE (18:19)
[2021-08-24 19:49] LABS: Troponin High Sensitivity 88.8 pg/mL (<58.9)
[2021-08-24 19:53] LABS: Thyroid Stimulating Hormone 2.52 uIU/mL (0.360-3.740)
[2021-08-24] MEDS: TICAGRELOR 90 MG TABLET PO SCH (23:03)
[2021-08-25 04:34] LABS: Magnesium 1.9 mg/dL (1.8-2.4); Potassium 3.6 mmol/L (3.5-5.1)
[2021-08-25 04:40] LABS: CKMB Creatine Kinase MB 2.4 ng/mL (1.0-3.6)
[2021-08-25 04:44] LABS: Troponin High Sensitivity 112.8 pg/mL (<58.9)
[2021-08-25] MEDS ORDERED: POTASSIUM CL SA 10 MEQ TAB PO ONE (05:24)
[2021-08-25] MEDS ORDERED: METOPROLOL TAR 25 MG TAB PO SCH (06:00)
--- NOTE | 2021-08-25 08:16 | P.PN ---
Subjective Date of Service: 08/25/21 Chief Complaint: Dizziness, palpitation. Subjective: No new changes, Improving Physical Examination - Vital Signs Temperature: 97.3 F Blood Pressure: 118/59 Pulse: 70 Respirations: 16 Pulse Ox (%): 99 - Physical Exam General: Alert, Oriented x3 HEENT: Atraumatic, Normocephalic Neck: Supple Respiratory: Normal air movement Cardiovascular: Regular rate/rhythm, Normal S1 S2 Gastrointestinal: Soft and benign Musculoskeletal: No swelling - Studies Laboratory Data (last 24 hrs) 08/24/21 13:18: PT 11.0, INR 1.00 08/24/21 13:18: WBC 6.4, Hgb 13.3 L, Hct 40.1, Plt Count 224 08/24/21 13:18: Sodium 136, Potassium 3.3 L, BUN 16, Creatinine 1.39 H, Glucose 101, Magnesium 2.1, Total Bilirubin 0.5, AST 20, ALT 33, Alkaline Phosphatase 62 Assessment And Plan - Plan 1.Atrial fibrillation: Patient does have a history of atrial fibrillation and is as a watchman procedure done. Is presently on aspirin and Brilinta. We will put him on telemetry and a rate control medication metoprolol started. Will obtain lipid panel in a.m. Will have cardiology evaluate if needed. 2. Coronary artery disease status post bypass graft surgery: Will continue statin therapy and dual antiplatelet therapy pending further review. Cardiology on board. 3. Elevated troponin. This is perhaps secondary to tachycardia episode however there is some strong suspicion for NSTEMI based on cardiac history. We will trend troponin and follow-up. Will continue dual antiplatelet therapy pending further review. If troponin trend continues to be concerning full dose Lovenox/heparin will be started for ACS management Prophylaxis: Lovenox for DVT prophylaxis CODE STATUS: Full code. Disposition: For possible discharge in 24-48hr.
[2021-08-25] MEDS: TICAGRELOR 90 MG TABLET PO SCH (08:38)
[2021-08-25 08:56] LABS: CKMB Creatine Kinase MB 2.7 ng/mL (1.0-3.6)
[2021-08-25] MEDS ORDERED: ENOXAPARIN 40 MG/0.4 ML SQ SCH (09:00)
[2021-08-25] MEDS ORDERED: SACUBITRIL/VALSARTAN 49/51 MG TAB PO SCH (09:00)
[2021-08-25] MEDS ORDERED: ASPIRIN EC 81 MG TAB PO SCH (09:00)
[2021-08-25] MEDS ORDERED: ASCORBIC ACID 500 MG TABLET PO SCH (09:00)
[2021-08-25] MEDS ORDERED: AMIODARONE HCL 200 MG TAB PO SCH (09:00)
[2021-08-25 09:56] VITALS: O2SAT 99
--- NOTE | 2021-08-25 10:21 | P.DS ---
Admission Date: 08/24/21 Discharge Date: 08/25/21 Disposition: ROUTINE DISCHARGE Discharge Condition: GOOD Reason for Admission: Dizziness, palpitation. Brief History of Present Illness: 76-year-old male patient with medical history significant for coronary artery disease status post bypass graft surgery, history of atrial fibrillation status post watchman procedure and cardioversion, hyperlipidemia, hypertension, history of CHF on oral Lasix who was evaluated in the emergency room for episode of feeling tired and slightly dizzy. He reported episode of palpitation and started earlier today and as per he also had episode of low heart rate with heart rate said to have dropped into the 30s before coming to the ER. In the emergency department because of concerns for possible underlying tachyarrhythmia he had lab work that revealed elevated troponin and episode of slight tachycardia. He was asked to be admitted for observation and rule out for ACS. He denied any overt chest pain, fever, chills, rigor, nausea, vomiting. He denied any shortness of breath episode. Hospital Course: He had a stable course overnight with no repeat episode of tachycardia or bradycardia. He had no repeat chest pain. Trend of troponin was nonrevealing. His CK-MB was also nonrevealing. Lipid panel was evaluated and was deemed to be within acceptable limit. He will continue present dose of atorvastatin. He will continue dose of amiodarone for rate control and Brilinta and aspirin for anticoagulation. 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 Vital Signs/Physical Exam: Temp Pulse Resp BP Pulse Ox 97.3 F 70 16 118/59 L 99 08/25/21 08:16 08/25/21 08:16 08/25/21 08:16 08/25/21 08:16 08/25/21 08:16 General: Alert, Oriented x3 HEENT: Atraumatic Neck: Supple Respiratory: Normal air movement Cardiovascular: Regular rate/rhythm, Normal S1 S2 Gastrointestinal: Soft and benign Musculoskeletal: No swelling Neurological: Normal speech Laboratory Data at Discharge: WBC 6.4 K/uL (4.3-10.9) 08/24/21 13:18 Hgb 13.3 g/dL (13.6-17.9) L 08/24/21 13:18 Hct 40.1 % (39.6-49.0) 08/24/21 13:18 Plt Count 224 K/uL (152-406) 08/24/21 13:18 PT 11.0 SECONDS (9.5-12.5) 08/24/21 13:18 INR 1.00 08/24/21 13:18 Sodium 140 mmol/L (136-145) 08/25/21 03:36 Potassium 3.6 mmol/L (3.5-5.1) 08/25/21 03:36 BUN 15 mg/dL (7-18) 08/25/21 03:36 Creatinine 1.19 mg/dL (0.55-1.3) 08/25/21 03:36 Glucose 100 mg/dL (74-106) 08/25/21 03:36 Phosphorus 3.0 mg/dL (2.5-4.9) 08/25/21 03:36 Magnesium 1.9 mg/dL (1.8-2.4) 08/25/21 03:36 Total Bilirubin 0.5 mg/dL (0.2-1.0) 08/24/21 13:18 AST 20 U/L (15-37) 08/24/21 13:18 ALT 33 U/L (12-78) 08/24/21 13:18 Alkaline Phosphatase 62 U/L (45-117) 08/24/21 13:18 Triglycerides 313 mg/dL (<150) H 08/25/21 03:36 Cholesterol 183 mg/dL (<200) 08/25/21 03:36 HDL Cholesterol 35 mg/dL (40-60) L 08/25/21 03:36 Cholesterol/HDL Ratio 5.23 08/25/21 03:36 Home Medications: Amiodarone HCl [Pacerone] 200 mg PO DAILY 08/24/21 Ascorbate Calcium [Vitamin C] 500 mg PO BID 08/24/21 Aspirin [Aspirin EC] 81 mg PO DAILY 08/24/21 Atorvastatin Calcium [Lipitor] 80 mg PO BEDTIME 08/24/21 Furosemide 40 mg PO BID 08/24/21 Multivitamin 1 tab PO DAILY 08/24/21 Omeprazole 20 mg PO BID 08/24/21 Sacubitril/Valsartan [Entresto 49 mg-51 mg Tablet] 1 tab PO BID 08/24/21 Ticagrelor [Brilinta*] 90 mg PO BID 08/24/21 Ticagrelor [Brilinta*] 90 mg PO BID tablet 08/25/21 Diet: AHA Activity: Ad geovanni Followup: Deon Da Silva FNP [Primary Care Provider] -
[2021-08-25 10:28] VITALS: BP 121/75; TEMP 97.1
[2021-08-25] MEDS ORDERED: ATORVASTATIN 80 MG TAB PO SCH (21:00)
--- NOTE | 2021-08-27 10:09 | EKG ---
Test Date: 2021-08-24 Test Time: 13:10:49 Drop Board Man: LEX MEASUREMENT RESULTS: Intervals: Rate: 95 [place]: 256 QRSD: 138 QT: 390 QTc: 490 [place]: P: -20 [place]: 256 QRS: -25 T: 60 INTERPRETIVE STATEMENTS: Sinus rhythm with 1st degree AV block with occasional premature ventricular complexes Nonspecific intraventricular block Cannot rule out Anterior infarct, age undetermined Abnormal ECG Compared to ECG 03/03/1999 07:38:00 Ventricular premature complex(es) now present First degree AV block now present Myocardial infarct finding still present Electronically Signed On 08-27-21 10:03:09 CDT by Marc Jones
== END 2021-08-25 10:49 | disposition home or self-care (01) ==
LOC: ER 12:03 → ERHOLD 16:21 → 2ND 19:55
PROVIDERS: ADMIT Internal Medicine Nephrology; ATTEND Internal Medicine Nephrology
DX: I48.91 Unspecified atrial fibrillation (principal); I25.10 Atherosclerotic heart disease of native coronary artery without angina pectoris; I11.0 Hypertensive heart disease with heart failure; I50.9 Heart failure, unspecified; R77.8 Other specified abnormalities of plasma proteins; E78.5 Hyperlipidemia, unspecified; I25.2 Old myocardial infarction; Z95.1 Presence of aortocoronary bypass graft; Z79.82 Long term (current) use of aspirin; Z79.899 Other long term (current) drug therapy; Z20.822 Contact with and (suspected) exposure to COVID-19
CPT/HCPCS: 93005; 85025; 80048 ×2; 36415 ×2; 83735 ×2; 82550 ×3; 84100; 85610; 80061; 80076; 84443; 84484 ×3; 82553 ×3; 84439; 83880; 71045; 99285; U0003; J1650; G0378 ×3